=== PATIENT | female | born 1945 | race Caucasian/White ===

== ENCOUNTER 2023-09-12 07:39 | Inpatient (IN) | payer MEDICARE, OTHER, SELFPAY ==
--- NOTE | 2023-08-30 09:00 | CM ---
Patient is scheduled for an elective L TKR on 09/12/23. Spoke with patient prior to surgery via telephone. Patient had a R TKR at in 2014. Reintroduced role of Orthopedic Navigator. Patient reports that she lives with her sister in a one story
home. There are two or three steps to enter. She currently functions independently. She has a rolling walker and shower seat. She has had VN services through [facility]. PCP is Dr. Rigo Smiley.
Discussed orthopedic program and post surgical plans. Reviewed anticipated length of stay and that goal is for her to return home at discharge. Also reviewed outpatient PT. Patient is in agreement with tentative plan and will go directly to
outpatient PT at [facility]. She will have support from her sister and other family members when she goes home.
Patient will complete online education.
Plan: Orthopedic Navigator will remain available to assist with the care of patient and will reassess discharge needs after surgery.
[2023-08-31 14:13] VITALS: BMI 28.3
[2023-08-31 14:30] LABS: Hemoglobin 15.8 g/dL (12.0-16.0); Mean Corp Hgb Conc. 34.3 g/dL (33.0-37.0); Mean Corpuscular Hgb 31.6 pg (27.0-31.0); Mean Platelet Volume 9.6 fL (7.4-10.4); Platelet Count 245 10^3/uL (130-400); Red Cell Dist. Width 12.7 % (11.5-14.5); White Blood Cell Count 7.3 10^3/uL (4.8-10.8)
[2023-08-31 14:53] VITALS: BMI 28.3
[2023-08-31 15:00] LABS: ALT (SGPT) 25 U/L (0-35); AST (SGOT) 28 U/L (14-36); Albumin 4.6 g/dl (3.5-5.0); Alkaline Phosphatase 92 U/L (38-126); Blood Urea Nitrogen 21 mg/dl (7-17); Calcium 9.9 mg/dl (8.4-10.2); Carbon Dioxide 30 mmol/L (22-30); Chloride 102 mmol/L (98-107); Estimated Creatinine Clearance 48 ml/min; Glucose 129 mg/dl (70-99); Potassium 4.6 mmol/L (3.5-5.1); Sodium 139 mmol/L (135-145); Total Bilirubin 0.5 mg/dl (0.2-1.3); Total Protein 7.5 g/dl (6.3-8.2); eGFR > 60.00
[2023-09-01 09:34] LABS: Glycohemoglobin (HgbA1c) 5.5 % (4.0-5.6)
[2023-09-12] VITALS (20 sets, daily range): BP systolic 119–184; BP diastolic 59–99; PULSE 81–84; O2SAT 96–98; BMI 28.3
[2023-09-12] MEDS: CELEBREX 200 MG PO (08:18)
[2023-09-12] MEDS: NORMOSOL-R 1000 IV ×2 (08:19→14:01)
[2023-09-12] MEDS: BACTROBAN NASAL 1 GRAM NASAL (08:19)
[2023-09-12] MEDS: TYLENOL 650 MG PO ×4 (08:19→21:02)
[2023-09-12] MEDS: ASPIRIN 325 MG PO (13:39)
[2023-09-12] MEDS: ARICEPT 10 MG PO (13:39)
[2023-09-12] MEDS: PROZAC 10 MG PO (13:40)
[2023-09-12] MEDS: LIPITOR 10 MG PO (13:40)
[2023-09-12] MEDS: VISBIOME 1 CAP PO (13:45)
[2023-09-12] MEDS: ANCEF 5 IV (18:34)
--- NOTE | 2023-09-12 20:00 | PTCARENOTE ---
pt arrived from [facility]. no c/o pain. Inge w/ scant jannet. wk pp. pt oriented to room w/ call gardner in reach.
reviewed post op wound care, ambulation, and precautions. pt walked 75 feet in hallways w/ RW.
[2023-09-12] MEDS: BACTROBAN 2% OINTMENT 1 APPLIC NASAL (21:00)
[2023-09-12] MEDS: TORADOL 15 MG IV (21:04)
[2023-09-12] MEDS: SENOKOT 17.1999999999999993 MG PO (21:05)
[2023-09-12] MEDS: COLACE 100 MG PO (21:05)
[2023-09-12] MEDS: DECADRON 4 MG PO (21:05)
[2023-09-12] MEDS: PEPCID 20 MG PO (21:05)
[2023-09-12] MEDS: NEURONTIN 300 MG PO (21:06)
[2023-09-12] MEDS: TYLENOL PO (23:59)
[2023-09-12] MEDS: MELATONIN 3 MG PO (23:59)
[2023-09-13] MEDS: TYLENOL PO ×2 (00:05→05:21)
[2023-09-13] MEDS: ANCEF 5 IV (02:09)
[2023-09-13 03:12] VITALS: BP 140/80
[2023-09-13 07:50] VITALS: BP 151/87
[2023-09-13 09:09] VITALS: BP 142/85; PULSE 87; O2SAT 92
[2023-09-13] MEDS: SENOKOT 17.1999999999999993 MG PO (09:21)
[2023-09-13] MEDS: TYLENOL 650 MG PO (09:21)
[2023-09-13] MEDS: CELEBREX 200 MG PO (09:21)
[2023-09-13] MEDS: PROZAC 10 MG PO (09:21)
[2023-09-13] MEDS: ASPIRIN 325 MG PO (09:22)
[2023-09-13] MEDS: DECADRON 4 MG PO (09:22)
[2023-09-13] MEDS: ARICEPT 10 MG PO (09:22)
[2023-09-13] MEDS: VISBIOME 1 CAP PO (09:22)
[2023-09-13] MEDS: LIPITOR 10 MG PO (09:23)
[2023-09-13] MEDS: COLACE 100 MG PO (09:23)
[2023-09-13] MEDS: BACTROBAN 2% OINTMENT 1 APPLIC NASAL (09:23)
[2023-09-13] MEDS: TORADOL 15 MG IV (09:24)
--- NOTE | 2023-09-13 09:34 | CM ---
Reviewed chart and held rounds with PT, OT and nursing. Patient admitted as planned for elective L TKR. Met with patient at bedside. Confirmed information previously obtained for assessment. Also discussed discharge plans. The plan is for patient to
return home at discharge. She will have support from her sister when she goes home. Patient will go directly to outpatient PT and will go to [facility]. She has an appointment scheduled for 09/14/23. Reviewed need to schedule appointment with
HORACIO at Dr. Colindres office in two weeks for removal of yennifer.
Patient has a rolling walker, and shower seat.
She will use [facility] for discharge prescriptions.
--- NOTE | 2023-09-13 09:37 | W.PN.ORTHO ---
Today's Communication / Plan
-
d/c
Assessment
.
Distal Motor Intact: Yes
Dressing:
Clean, dry and intact.
Assessment:
Cognitive deficits-minimize opioids
Plan
.
Surgery / Date: L TKA 09/12/23 CBB
DVT Prophylaxis: Aspirin (+ SCD device)
Activity:
Out of bed.
PT/OT
Discharge Plan: Home w/ Outpatient PT
Subjective
.
.:
Patient resting comfortably.
Vital Signs and Labs
.
Vital Signs and Labs:
Lab Results
08/31/23 14:05
08/31/23 14:05
Temp Pulse Resp BP Pulse Ox
98.6 F 98 18 151/87 96
09/13/23 07:50 09/13/23 07:50 09/13/23 07:50 09/13/23 07:50 09/13/23 07:50
Non-invasive Hgb result: 13.1
Physical Exam
-
HEENT: No pallor, cyanosis, or jaundice. Throat clear.
NECK: Supple. No JVD.
RESPIRATORY: Lungs clear to auscultation.
CVS: S1, S2 normal. RRR.� No murmur, rub or gallop.
ABDOMEN: Soft, non-tender. No distension. BS+/normal.
EXTREMITIES: strength equal, no calf pain with palpation
TIP PRINTER: AOx3. No focal deficits. transformer mechanic grossly intact
--- NOTE | 2023-09-13 09:46 | W.DS.TRANS ---
DC Summary - Electronic Drafter
-
Discharge Instructions:
Sleep Apnea Risk Low
Discharge Diagnosis/Procedures L TKA 09/12/23 CBB
Diet As tolerated
Activity With Walker
Additional Activity venous compression device/plasma flow when
sitting or sleeping--frequent ambulation
Driving Restrictions No driving
Bathing Restrictions OK to Shower
Other Services PT
Instructions:
Stand-Alone Forms: Total Hip/Knee Replacement D/C
Changes to Home Medications: Yes
Discharge Medications:
DC Medications w/original date entered in [employer]
Probiotic 1 cap PO DAILY 08/30/23
atomoxetine 25 mg capsule 50 mg PO DAILY 08/30/23
atorvastatin 10 mg tablet 10 mg PO DAILY 08/30/23
biotin 10,000 mcg capsule 10,000 mcg PO DAILY 08/30/23
donepezil 10 mg tablet 10 mg PO DAILY 08/30/23
fluoxetine 10 mg tablet 10 mg PO DAILY 08/30/23
ibuprofen 200 mg tablet 400 mg PO Q6H PRN pain 08/30/23
psyllium husk 0.4 gram capsule (Fiber (psyllium husk)) 0.4 g PO DAILY 08/30/23
mupirocin 2 % topical ointment 1 applic topical BID infection prevention #1 tube 08/31/23
Vitamin C 1 gummy PO DAILY 09/12/23
loratadine 10 mg tablet (Claritin) 10 mg PO PRN PRN allergies 09/12/23
acetaminophen 500 mg tablet 1,000 mg (2 x 500 mg) PO QID #0 tabs 09/13/23
aspirin 325 mg tablet 325 mg PO DAILY blood clot prevention #1 tab 09/13/23
celecoxib 200 mg capsule 200 mg PO DAILY anti-inflammatory #14 caps 09/13/23
dexamethasone 4 mg tablet 4 mg PO BID inflammation #6 tabs 09/13/23
docusate sodium 100 mg capsule (Colace) 100 mg PO BID stool softner #1 cap 09/13/23
famotidine 20 mg tablet 20 mg PO HS GI prophylaxis #30 tabs 09/13/23
gabapentin 300 mg capsule 300 mg PO HS sleep/pain #10 caps 09/13/23
magnesium hydroxide 400 mg/5 mL oral suspension (Milk of Magnesia) 30 ml PO HS PRN Constipation #1 mL 09/13/23
oxycodone 5 mg tablet 5 mg PO Q4HPRN PRN moderate-severe pain #20 tabs 09/13/23
sennosides 8.6 mg tablet (Senokot) 17.2 mg (2 x 8.6 mg) PO BID laxative #2 tabs 09/13/23
Home Medication Changes
celecoxib 200 mg capsule 200 mg PO DAILY anti-inflammatory #14 caps 09/13/23�
dexamethasone 4 mg tablet 4 mg PO BID inflammation #6 tabs 09/13/23�
famotidine 20 mg tablet 20 mg PO HS GI prophylaxis #30 tabs 09/13/23�
gabapentin 300 mg capsule 300 mg PO HS sleep/pain #10 caps 09/13/23�
oxycodone 5 mg tablet 5 mg PO Q4HPRN PRN moderate-severe pain #20 tabs 09/13/23�
Pending Results: No
[2023-09-13 09:59] VITALS: BP 165/88; PULSE 98; O2SAT 91
== END 2023-09-13 11:36 | disposition home or self-care (01) | DRG 470 ==
LOC: 2 SOUTH 07:39
PROVIDERS: ADMITTING PHYSICIAN Specialist; FAMILY PHYSICIAN Family Medicine; OTHER PHYSICIAN Physician Assistant Medical
PROC: 0SRD0J9 Replacement of Left Knee Joint with Synthetic Substitute, Cemented, Open Approach (ICD-10-PCS; 2023-09-12)
DX: M17.12 Unilateral primary osteoarthritis, left knee (principal); K76.0 Fatty (change of) liver, not elsewhere classified; I10 Essential (primary) hypertension; F32.A Depression, unspecified; E78.5 Hyperlipidemia, unspecified; M76.892 Other specified enthesopathies of left lower limb, excluding foot; F41.9 Anxiety disorder, unspecified; R41.89 Other symptoms and signs involving cognitive functions and awareness; Z79.899 Other long term (current) drug therapy; Z86.711 Personal history of pulmonary embolism; Z87.891 Personal history of nicotine dependence; Z96.651 Presence of right artificial knee joint
CPT/HCPCS: 36415; 73560; 80053; 83036; 85027; 87070; 93005; 97116; 97162; 97166; 97530; 97535; C1713; C1776

== ENCOUNTER 2023-10-11 16:04 | Emergency (ER) | payer MEDICARE, OTHER, SELFPAY ==
[2023-10-11 16:11] VITALS: BP 177/89
[2023-10-11 17:39] VITALS: BP 153/72
[2023-10-11 18:00] VITALS: BP 158/67
[2023-10-11 18:13] LABS: % Basophils 0.3 % (0-2); % Eosinophils 3.3 % (0-6); % Immature Granulocytes 0.4 % (0-0.5); % Lymphocytes 9.3 % (20.5-51.1); % Monocytes 7.9 % (1.7-9.3); % Neutrophils 78.8 % (42.2-75.2); Absolute Eosinophils 0.2 10^3/uL (0-0.7); Absolute Lymphocytes 0.7 10^3/uL (1.2-3.4); Absolute Monocytes 0.6 10^3/uL (0.1-0.6); Absolute Neutrophils 5.5 10^3/uL (1.4-6.5); Hematocrit 38.7 % (37.0-47.0); Hemoglobin 12.5 g/dL (12.0-16.0); Mean Corp Hgb Conc. 32.3 g/dL (33.0-37.0); Mean Corpuscular Hgb 31.4 pg (27.0-31.0); Mean Corpuscular Volume 97.2 fL (81.0-99.0); Mean Platelet Volume 9.4 fL (7.4-10.4); Nucleated Red Blood Cells % 0 %; Platelet Count 267 10^3/uL (130-400); Red Blood Cell Count 3.98 10^6/uL (4.20-5.40); Red Cell Dist. Width 13.6 % (11.5-14.5)
[2023-10-11 18:25] LABS: ALT (SGPT) 16 U/L (0-35); AST (SGOT) 24 U/L (14-36); Albumin 3.9 g/dl (3.5-5.0); Alkaline Phosphatase 96 U/L (38-126); Blood Urea Nitrogen 24 mg/dl (7-17); Calcium 9.6 mg/dl (8.4-10.2); Carbon Dioxide 26 mmol/L (22-30); Chloride 107 mmol/L (98-107); Glucose 98 mg/dl (70-99); Magnesium 2.3 mg/dl (1.6-2.3); Sodium 138 mmol/L (135-145); Total Bilirubin 0.6 mg/dl (0.2-1.3); Total Protein 6.6 g/dl (6.3-8.2); eGFR > 60.00
[2023-10-11 18:36] LABS: Troponin I < 0.012 ng/ml
[2023-10-11 18:56] LABS: TSH 1.38 uIU/ml (0.47-4.68)
[2023-10-11 20:15] VITALS: BP 150/80
--- NOTE | 2023-10-11 21:00 | ED.GENMED ---
History of Present Illness
General
Chief Complaint: Blood Pressure Problem
Source: patient
Exam Limitations: none
Time Seen by Provider: 10/11/23 17:24
Nursing documentation reviewed up to this point in time: agreed with
History of Present Illness
History of Present Illness:
77-year-old female with medical history of previous clot not currently anticoagulated recent left knee replacement 2 months ago presenting to the emergency department today with concerns of elevated blood pressures and some intermittent
lightheadedness but no full loss of consciousness no chest pain shortness of breath nausea vomiting numbness or weakness.
Past History
Past History
ED Past Medical History: Other (Pulmonary embolism); Negative IDDM
ED Past Surgical History: Orthopedic and Tonsilectomy; Negative Appendectomy
Social History
Tobacco: Non-smoker
Alcohol: None
Drug: None
Personal: Single
Living: with family
Employment: Not employed
Family History
Family History: Other
Review of Systems
Review of Systems
Allergies reviewed?: Yes
All Other Systems: ROS reviewed and negative except as documented in HPI and ROS
Phy Exam
Physical Exam
Physical Exam:
GENERAL: Alert , in no apparent distress
EYE: pupils equal and reactive
NECK: Supple, no significant adenopathy.
ENT: o/p clr, mmm.
CARDIAC: Regular rate and rhythm .
LUNGS: Clear breath sounds bilaterally, no acute respiratory distress, no wheezes/rales/rhonchi
ABDOMEN: Soft, without focal tenderness, no r/g, no cvat
NEUROLOGICAL: Alert and oriented, no focal neuro deficits
SKIN: Warm and dry, skin intact.
MUSCULOSKELETAL: Mild swelling to the left leg no overlying redness or warmth no tenderness to palpation, well perfused.
PSYCH: Normal and appropriate interaction.
Course
Orders/Labs/Results
Orders:
Orders
10/11/23 17:54
Venous Doppler Lwr Ext Left [US Periph Venous LOWER Ext LT] Urgent
Comment:
Reason For Exam: left leg swelling knee usrtgery
10/11/23 17:55
Electrocardiogram (*1) Stat
Reason for Study: Other
Other Reason for Exam: chest pain
EKG- Treatment ONCE
10/11/23 17:59
Complete Blood Count/With Diff Urgent
Comprehensive Metabolic Panel Urgent
Magnesium Urgent
TSH Urgent
Troponin I Urgent
Abnormal Lab Results
10/11/23
17:59
RBC 3.98 L 10^6/uL
(4.20-5.40)
MCH 31.4 H pg
(27.0-31.0)
MCHC 32.3 L g/dL
(33.0-37.0)
Absolute Lymphs (auto) 0.7 L 10^3/uL
(1.2-3.4)
Neutrophils % 78.8 H %
(42.2-75.2)
Lymphocytes % 9.3 L %
(20.5-51.1)
BUN 24 H mg/dl
(7-17)
10/11/23 17:59
10/11/23 17:59
Vital Signs
Initial and Last Documented VS:
Initial Vital Signs
Temp Pulse Resp BP Pulse Ox
97.9 F 90 15 177/89 96
10/11/23 16:11 10/11/23 16:11 10/11/23 16:11 10/11/23 16:11 10/11/23 16:11
Last Documented Vital Signs
Temp Pulse Resp BP Pulse Ox
98.2 F 69 20 150/80 97
10/11/23 20:15 10/11/23 20:15 10/11/23 20:15 10/11/23 20:15 10/11/23 20:15
MDM/Problems Addressed
MDM/Problems Addressed:
77-year-old female presenting to the emergency department today with concerns of elevated blood pressure at home in the 190s over low 100s upon arrival here blood pressures in the 170s over 80s but improving to 150s over 80s without specific
treatment. Labs were obtained and unremarkable other than a slightly elevated BUN to creatinine ratio but was able to tolerate fluids here. Troponin negative EKG normal ultrasound of the left leg without signs of blood clot. Patient was started
on blood pressure medication considering she claims that she has been taking her blood pressure at home and has had elevated numbers over the past month. Advised for close outpatient follow-up. Return precautions given.
*Critical Care Note
Total Time (30-74mins, 75-104mins- exclusive of procedures): Not Applicable
ED Attending Note
-
Portions of this chart may have been created with voice recognition software.� Occasional wrong word or��sound alike� substitutions may have occurred due to the inherent limitations of voice recognition software.
Discharge Plan
Departure
Patient Disposition: Home (Routine Discharge)
Date of Disposition: 10/11/23
Time of Disposition: 21:03
Patient with high blood pressure during this ER visit?: Yes
Condition: Good
Covid-19: Not Applicable
Discharge Problem:
BP (high blood pressure)
Instructions: High Blood Pressure (DC)
Prescriptions:
New
lisinopril 5 mg tablet
5 mg PO DAILY 14 Days Qty: 14 0RF
No Action
atorvastatin 10 mg Tablet
10 mg PO DAILY
donepezil 10 mg Tablet
10 mg PO DAILY
fluoxetine 10 mg Tablet
10 mg PO DAILY
biotin 10,000 mcg Capsule
10,000 mcg PO DAILY
atomoxetine 25 mg Capsule
50 mg PO DAILY
psyllium husk [Fiber (psyllium husk)] 0.4 gram Capsule
0.4 g PO DAILY
Probiotic
1 cap PO DAILY
ibuprofen 200 mg Tablet
400 mg PO Q6H PRN (Reason: pain)
Hold Instructions: Resume on 09/29/23.
loratadine [Claritin] 10 mg Tablet
10 mg PO PRN PRN (Reason: allergies)
Vitamin C
1 gummy PO DAILY
aspirin 325 mg tablet
325 mg PO DAILY Qty: 1 0RF
Rx Instructions:
Take with food
gabapentin 300 mg capsule
300 mg PO HS Qty: 10 0RF
sennosides [Senokot] 8.6 mg tablet
17.2 mg PO BID Qty: 2 0RF
famotidine 20 mg tablet
20 mg PO HS Qty: 30 0RF
Rx Instructions:
post-op
acetaminophen 500 mg Tablet
1,000 mg PO QID Qty: 0 0RF
Referrals:
Rigo Smiley, [Family Provider] -
Activity Restrictions/Additional Instructions:
You came to the emergency department today with concerns of elevated blood pressure. Your blood pressure was elevated in the 150s over 80s here please take the prescribed lisinopril once daily and follow-up closely with your primary care doctor for
reassessment. Return to the emergency department for any worsening, new or concerning symptoms.
Interventions
Interventions:
*Risk Screen - Suicide Last Done: 10/11/23 16:11
*General Assessment Last Done: 10/11/23 16:11
*Neglect/Abuse Screening Last Done: 10/11/23 16:11
ED- Fall Risk Assessment Last Done: 10/11/23 17:57
*ED COVID-19 Vaccine History Last Done: 10/11/23 17:25
ED- Cardiac Assessment Last Done: 10/11/23 20:15
ED- Neurological Assessment Last Done: 10/11/23 20:15
ED- Pulmonary Assessment Last Done: 10/11/23 20:15
Discharge Date and Time
Print Language: UKRAINIAN
[2023-10-11 21:25] VITALS: BP 138/80
[2023-10-11] MEDS: ZESTRIL 5 MG PO (21:31)
== END 2023-10-11 21:55 | disposition home or self-care (01) ==
LOC: EMR 16:04
PROVIDERS: Physician Assistant; EMERGENCY PHYSICIAN Emergency Medicine; FAMILY PHYSICIAN Family Medicine
DX: R03.0 Elevated blood-pressure reading, without diagnosis of hypertension (principal); R60.0 Localized edema; Z86.711 Personal history of pulmonary embolism; Z90.49 Acquired absence of other specified parts of digestive tract
CPT/HCPCS: 99284; 80053; 83735; 84443; 84484; 85025; 93005; 93971

== ENCOUNTER 2023-10-15 16:49 | Observation (INO) | payer MEDICARE, OTHER, SELFPAY ==
[2023-10-15] VITALS (18 sets, daily range): BP systolic 143–199; BP diastolic 64–96; PULSE 72–87; BMI 30.8
--- NOTE | 2023-10-15 10:32 | ED.GENMED ---
History of Present Illness
General
Chief Complaint: Dizziness
Source: patient and other (Granddaughter)
Exam Limitations: none
Time Seen by Provider: 10/15/23 09:52
History of Present Illness
History of Present Illness:
Patient presents with 2 complaints. Complaint #1 is a note recurrent episode of dizziness this morning lasted 10 to 15 minutes then self resolved. No headache no other focal neurologic symptoms. Patient currently on blood pressure management
after a similar episode last week
Past History
Past History
ED Past Medical History: Other (Pulmonary embolism); Negative IDDM
ED Past Surgical History: Orthopedic and Tonsilectomy; Negative Appendectomy
Social History
Tobacco: Non-smoker
Alcohol: None
Drug: None
Personal: Single
Living: with family
Employment: Not employed
Family History
Family History: Other
Review of Systems
Review of Systems
All Other Systems: Not applicable
Constitutional: Denies fever or chills
Respiratory: Reports no symptoms
Cardiac: Reports no symptoms; Denies chest pain or syncope
Phy Exam
Physical Exam
Physical Exam:
GENERAL: Alert and oriented in no apparent distress
EYE: Orbits normal.
NECK: Supple, no significant adenopathy.
ENT: Pharynx without erythema
CARDIAC: Regular rate and rhythm without any obvious murmurs.
LUNGS: There are a few dry crackles in the base of her lungs however no respiratory distress no wheezing rhonchi.
ABDOMEN: Soft, without focal tenderness or distention
NEUROLOGICAL: Alert and oriented , grossly non-focal
SKIN: Warm and dry, mild erythematous hue to the left lower leg. However no warmth or erythema. Well-healing postoperative incision. No drainage.
MUSCULOSKELETAL: Mild nonpitting edema to the left lower extremity. This is from knee down. No cord.
PSYCH: Normal and appropriate interaction.
Course
Orders/Labs/Results
Orders:
Orders
10/15/23 10:07
Electrocardiogram (*1) Stat
Reason for Study: Other
Other Reason for Exam: neuro symptoms
Cardiac Monitoring- Treatment ONCE
EKG- Treatment ONCE
IV Insert/Care/Rem.- Treatment PRN
Knee, Left 4 or More Views [CR Knee - Left 4 Or More View*] Urgent
Comment:
Reason For Exam: Post knee replacement, swelling
US Periph Venous LOWER Ext LT Urgent
Comment:
Reason For Exam: Persistent swelling
10/15/23 10:16
Basic Metabolic Panel Urgent
Complete Blood Count/With Diff Urgent
10/15/23 10:25
CT Head W/o Iv Contrast Urgent
Comment:
Reason For Exam: Dizziness
10/15/23 16:20
Admit/Transfer Patient As Directed
Co-Sign Provider:
Level of Care: Observation services
Assign to:: Telemetry
Physician / Group: yehuda vega
Diagnosis: vertigo
Reason for Telemetry: Other
Other Reason for Telemetry: dizziness, assess for arrhythmia
Date to Stop Telemetry: 10/17/23
Time to Stop Telemetry: 11:00
10/15/23 16:24
Code Status As Directed
Resuscitation Status: Full Code
10/15/23 16:48
CT Head & Neck Angio W/wo IV Routine
Comment:
Reason For Exam: r/o vertobasilar stenosis
10/15/23 18:22
Bisacodyl [Dulcolax] 10 mg RECTAL [id number] PRN
Docusate W/Senna [Senokot-S] 1 tablet PO BIDPRN PRN
Enoxaparin Sodium [Lovenox] 40 mg SC QPM
Polyethylene Glycol Powder [Miralax] 17 grams PO DAILYPRN PRN
10/15/23 18:22
Activity As Directed
Activity Level: Out of Bed-Early Mobility
Vital Signs As Directed
Frequency: Per unit guidelines
Pulse Ox/spot Check [RESP] Routine
Quantity: 1
DX Deep Vein Thrombosis Video Routine
10/15/23 22:00
Famotidine [Pepcid] 20 mg PO HS
Lisinopril [Zestril] 5 mg PO HS
10/16/23 Breakfast
Regular
At Your Request: Full Participation
Does patient need a safe tray?: No
10/16/23 08:00
Ascorbic Acid [Vitamin C] 500 mg PO DAILY
Fluoxetine HCl [Prozac] 10 mg PO DAILY
biotin 10,000 mcg PO DAILY
10/17/23 11:00
DC Protocol for Telemetry ONCE
Abnormal Lab Results
10/15/23
10:16
RBC 4.07 L 10^6/uL
(4.20-5.40)
MCH 31.4 H pg
(27.0-31.0)
Absolute Lymphs (auto) 0.7 L 10^3/uL
(1.2-3.4)
Neutrophils % 76.1 H %
(42.2-75.2)
Lymphocytes % 11.7 L %
(20.5-51.1)
Chloride 108 H mmol/L
(98-107)
BUN 21 H mg/dl
(7-17)
Glucose 108 H mg/dl
(70-99)
10/15/23 10:16
10/15/23 10:16
Vital Signs
Initial and Last Documented VS:
Initial Vital Signs
Temp Pulse Resp BP Pulse Ox
98.1 F 71 16 155/80 98
10/15/23 09:36 10/15/23 09:36 10/15/23 09:36 10/15/23 09:36 10/15/23 09:36
Last Documented Vital Signs
Temp Pulse Resp BP Pulse Ox
98.8 F 81 20 170/86 93
10/16/23 07:30 10/16/23 07:30 10/16/23 07:30 10/16/23 07:30 10/16/23 07:30
MDM/Problems Addressed
Differential Diagnosis Includes:
Patient with 2 seemingly independent complaints. Ongoing swelling and concerns with her left knee which initially was not swollen but has been like this for the last 2 to 3 weeks. There is no acute new symptoms. She has no significant pain just
feels mildly tight. She is no fever or chills. No systemic infectious symptoms. Secondly she had a brief episode of disequilibrium that lasted 10 to 15 minutes. Her blood pressure has been under better control. She denies headache or neurologic
symptoms. Her neurologic exam is benign. She has slightly wide-based gait but this apparently has been ongoing.
*Radiology
Radiology exam reviewed: radiology read reviewed (Negative knee x-ray. Negative leg ultrasound. Negative head CT.)
*Pulse Oximetry
Patient hypoxic: no
*EKG
Interpreted by ED Provider?: Yes
Interpretation: normal
Rate: normal
Rhythm: sinus
Gilchrist: normal axis
Interval: normal interval
QRS Pattern: normal QRS
Ischemia: no ischemia
*Critical Care Note
Total Time (30-74mins, 75-104mins- exclusive of procedures): Not Applicable
Data Reviewed
Review of Other/Old Records Reveals: Labs, Records and Testing
Update Note
Update Note:
Patient has remained medically stable and asymptomatic. Again I feel she has 2 unrelated issues. The leg has been ongoing with swelling upwards of a month per the daughter. There is no DVT. Clinically highly doubt an acute infectious issue.
There is no significant erythema warmth no drainage. Incision appears well. No indication for admission for this issue. As for her disequilibrium she had a brief episode this morning that lasted 10 to 15 minutes. She is currently asymptomatic.
Her neurologic exam is normal. She has started blood pressure management. She stopped aspirin a week or so ago. She did take 1 today at home. I had a lengthy discussion with the patient daughter and granddaughter. Daughter was over the phone.
I offered admission however admission would likely result in a prolonged stay awaiting a nonemergent MRI and likely would end up resulting in restarting aspirin. Even if this was a central issue. Clinically and medically I feel reasonable to have
her restart her aspirin and follow-up as an outpatient with her primary physician. Risk-benefit of staying versus discharge was explained to the patient daughter and granddaughter. And again admission was offered for observation and workup in the
hospital. They are comfortable with outpatient management. She will stay with family over the weekend.
ED Attending Note
-
Portions of this chart may have been created with voice recognition software.� Occasional wrong word or��sound alike� substitutions may have occurred due to the inherent limitations of voice recognition software.
Discharge Plan
Departure
Patient Disposition: Admit
Date of Disposition: 10/15/23
Time of Disposition: 14:40
Presentation/result/management discussed w/ accepting MD/DO: Hospitalist
Patient with high blood pressure during this ER visit?: Yes
Discharge Problem:
Episodic disequilibrium, Elevated blood pressure reading, Ongoing left leg swelling, Status post left knee replacement
Interventions
Interventions:
*Risk Screen - Suicide Last Done: 10/15/23 20:47
*General Assessment Last Done: 10/15/23 09:36
*Neglect/Abuse Screening Last Done: 10/15/23 09:36
ED- Fall Risk Assessment Last Done: 10/15/23 10:30
*ED COVID-19 Vaccine History Last Done: 10/15/23 10:30
*Nursing Disposition Last Done: 10/15/23 18:32
ED- Neurological Assessment Last Done: 10/15/23 10:30
ED- Cardiac Assessment Last Done: 10/15/23 10:30
ED Swallowing Screen Last Done: 10/15/23 10:30
Discharge Date and Time
Discharge Date/Time: 10/15/23 18:33
[2023-10-15 10:35] LABS: % Basophils 0.5 % (0-2); % Eosinophils 3.6 % (0-6); % Immature Granulocytes 0.5 % (0-0.5); % Lymphocytes 11.7 % (20.5-51.1); % Monocytes 7.6 % (1.7-9.3); % Neutrophils 76.1 % (42.2-75.2); Absolute Eosinophils 0.2 10^3/uL (0-0.7); Absolute Lymphocytes 0.7 10^3/uL (1.2-3.4); Absolute Monocytes 0.4 10^3/uL (0.1-0.6); Absolute Neutrophils 4.3 10^3/uL (1.4-6.5); Hematocrit 38.8 % (37.0-47.0); Hemoglobin 12.8 g/dL (12.0-16.0); Mean Corpuscular Hgb 31.4 pg (27.0-31.0); Mean Corpuscular Volume 95.3 fL (81.0-99.0); Mean Platelet Volume 9.4 fL (7.4-10.4); Nucleated Red Blood Cells % 0 %; Platelet Count 226 10^3/uL (130-400); Red Blood Cell Count 4.07 10^6/uL (4.20-5.40); Red Cell Dist. Width 13.4 % (11.5-14.5); White Blood Cell Count 5.6 10^3/uL (4.8-10.8)
[2023-10-15 10:55] LABS: Blood Urea Nitrogen 21 mg/dl (7-17); Calcium 9.4 mg/dl (8.4-10.2); Carbon Dioxide 25 mmol/L (22-30); Chloride 108 mmol/L (98-107); Estimated Creatinine Clearance 62 ml/min; Glucose 108 mg/dl (70-99); Potassium 3.8 mmol/L (3.5-5.1); Sodium 140 mmol/L (135-145); eGFR > 60.00
--- NOTE | 2023-10-15 12:28 | EDRN ---
Dr. Irving in room w/ pt at this time.
--- NOTE | 2023-10-15 12:43 | EDRN ---
Patient and family voicing concern for pt. Dr. Irving informed and returned to alleve their concerns.
--- NOTE | 2023-10-15 13:20 | EDRN ---
This RN checked w/ pt on her decision of discharge vs admission after speaking w/ Dr. Irving. Pt stated that she has decided to go home and follow up as an outpatient. Dr. Irving informed.
--- NOTE | 2023-10-15 14:52 | EDRN ---
Pt is concerned about her BP again when this RN went in to discharge patient and SBP increased from 170 and now 183. Ruthy GRAMAJO is checking on pt and will speak w/ Dr. Irving.
--- NOTE | 2023-10-15 16:51 | HPS.HSE ---
Family Physician
-
Family Physician: Rigo Smiley
Chief Complaint
-
dizziness
History of Present Illness
77F with medical history htn and hld presents with acute onset of dizziness after waking up this morning. Debilitating and was unable to ambulate. Needed to lay back down with improvement in symptoms after 25m-30m. Associated nausea. Admits to
hearing waves like crashing sounds in her ears. She took her BP was high in the 190's and then took her lisinopril and aspirin. No vomiting. No bruning with urination. No CP, SOB, palpitations. No numbness, tingling nor loss of sensations. States
she has been properly hydrated and slept in a cool room with the AC on.
In the ED: Hypertensives with HR ranging between 65-75. Labs unremarkable. CT brain w/o acute findings. DVT study negative. Knee xray with slight effusion but consistent with post op changes. EKG NSR.
Medical History
Past Medical History
Past Medical History: Reports HTN and Hypercholesterolemia
Past Surgical History: Reports Orthopedic and Tonsilectomy
Social History
Tobacco: Former Smoker
Alcohol: None
Drug: None
Living: With Family
Family History
Family History: Other
Allergies / Home Medications
Allergies reflects when Allergies were last updated in [employer]
Home Medications with original date entered in [employer]
Lipitor 10mg HS
Lisinopril 5mg daily
Allergy/Medication List:
NKDA
Review of Systems
-
History Source: Patient
A 12 point ROS was completed and negative except as noted: Yes
Physical Exam
Vital Signs
Vital Signs
Temp Pulse Resp BP Pulse Ox
98.1 F 72 23 178/78 96
10/15/23 09:36 10/15/23 14:45 10/15/23 14:45 10/15/23 14:30 10/15/23 14:00
NAD, Comfortable
No nystagmus illicited, scleral anicteric, MMM
No jvd
CTABL
RRR, s1/s2, no murmur
Soft nt nd bs+
Moves all 4 extremities sponteous. Left leg more swollen then the right, noted some warmth, suture line intake without drainage from recent knee surgery 09/11.
Physical Exam
General: Well Developed
Laboratory Results
-
10/15/23 10:16
10/15/23 10:16
Impression/Plan
-
Veritgo
ddx vertobasilar cva/tia, bppv, vestibular nuritis, unlikely cardiac in nature.
-ENT surgery as she is having auditory changes with having wave crashing sensation
-MRI Brain w/o con
-CTAngio Head/neck
-Tele monitor
-Orthostatics
-PT/OT
HTN uncontrolled, started on lisinopril on 10/11/2023
-We have room to go up on the lisinopril
-Would like to check orthostatics prior to increasing
Left knee swelling s/p left knee replacement on 09/12/23
-Have ortho eval
HLD
-Continue statin
DVT ppx
-LMWH
[2023-10-15] MEDS: LOVENOX 40 MG SC (18:38)
[2023-10-15] MEDS: LIPITOR 10 MG PO (18:39)
--- NOTE | 2023-10-15 18:54 | CON.MD ---
Consultation - Medical
-
dictated.
3 episodes of dizziness lasting 15' over the past 1.5 months.
Exam unremarkable.
Possibly TIAs, or from uncontrolled HTN?
Also bilateral pulsatile tinnitus for 1.5 months.
Differential includes HTN, venous hum, carotid stenosis, hyperthyroidism
Rec:
await CTA, MRI
check TFTs
PT eval
HTN being managed
[2023-10-15] MEDS: PEPCID 20 MG PO (21:06)
[2023-10-16 03:00] VITALS: BP 154/81
[2023-10-16 07:30] VITALS: BP 156/95; BP 157/91; BP 170/86; PULSE 81; PULSE 89; PULSE 97
[2023-10-16] MEDS: VITAMIN C 500 MG PO (08:36)
[2023-10-16] MEDS: PROZAC 10 MG PO (08:36)
[2023-10-16] MEDS: ZESTRIL 10 MG PO (08:36)
--- NOTE | 2023-10-16 08:48 | W.PN.UPDATE ---
Update Note
Progress Note Update
77-year-old female who is status post left total knee arthroplasty 12 September 2023 admitted overnight stay at [facility] with Dr. Colindres. She reports that she had some early wound dehiscence at the proximal aspect and was seen early in the
office. She reports since then she has recovered relatively well with most recent outpatient visit 27 September 2023 with range of motion recorded 0 to 100 degrees.
She reports that she has had intermittent swelling about the left knee and some medial based pain but overall feels that she is recovering well and was doing well with physical therapy. She is presently admitted for near syncopal episode and
dizziness reports since admission she has more difficulty with knee range of motion. Denies any fevers or chills
Physical examination of the left knee shows expected postoperative soft tissue swelling with no significant effusion appreciated, slight limited by habitus. Range of motion 5 to 80 degrees. Mild tenderness. No significant erythema. Neurovascular
intact L3-S1. Compartments of the lower leg are soft and compressible, minimal edema
Imaging: X-rays taken of the left knee show status post left knee arthroplasty without resurfacing without evidence of any osseous or hardware complication
77-year-old female status post left total knee arthroplasty [address] Colindres with some mildly increased pain and reduced range of motion with admission for other constitutional symptoms.
-Minimal concern on examination for infection. Patient does not remember dehiscence but no significant other risk factors for infection. Recommend baseline inflammatory markers for consideration of trending in the future. Will continue holding on
medication at this time but did recommend close clinical follow-up outpatient setting which was scheduled for the patient later this week to ensure that her range of motion is improving towards goal consideration of repeating inflammatory markers if
indicated.
-While admitted recommend PT for her left knee with primary focus of range of motion, with PT as tolerated with her currently admitted constitutional symptoms
[2023-10-16 10:04] LABS: C-Reactive Protein < 5.00 mg/L (0.0-10.00)
[2023-10-16 10:05] LABS: Erythrocyte Sed Rate 24 mm/hour (0-20)
[2023-10-16 11:24] VITALS: BP 154/82
[2023-10-16 11:55] VITALS: BP 154/82
--- NOTE | 2023-10-16 13:09 | W.PN.HOSP.TC ---
Today's Communication/Plan
-
Physical therapy DC
Discharge home after
Assessment / Plan
Assessment / Plan
Noted dizziness from sitting sensation. CT brain angio MRI brain all without evidence of acute abnormalities. ENT evaluated concern for possible TIA versus related to blood pressure especially as she had pulsatile tinnitus. Will discharge home on
increased BP meds. Aspirin 81 mg daily. Lipitor. Awaiting for PT to evaluate. May benefit from vestibular rehab.
Uncontrolled hypertension increase lisinopril. It slowly titrated to improvement in tolerance. Keep BP log
Family updated at bedside. Will also recommend outpatient cardiology follow-up for stress test as for her age known atherosclerotic disease, previous smoking history and hypertension along with blood pressure all increases her risk for CAD
Anticipated Discharge: Today
Subjective/Interval History
-
Date of Service: October 16, 2023
Seen and examined. No new complaints. No acute overnight events.
No further episodes of dizziness reported.
Objective Data
-
Vital Signs:
Vital Signs
Temp Pulse Resp BP Pulse Ox
98.1 F 73 18 154/82 96
10/16/23 11:24 10/16/23 11:24 10/16/23 11:24 10/16/23 11:24 10/16/23 11:24
I&O
10/15/23 10/16/23 10/17/23
06:59 06:59 06:59
Intake Total 480 / 480
Balance 480 / 480
--- NOTE | 2023-10-16 13:13 | W.DCSUMMARY ---
Discharge Summary
Discharge Data
Date of Admission: 10/15/23
Date of Discharge: 10/16/23
-
Pending Results: No
Hospital Course
77F hx of htn and hld Presented with dizziness after waking up this morning. Was unable to ambulate. Blood pressure was in the 190s and felt nauseous without vomiting. CT brain without any acute findings. CT angio brain without evidence of
high-grade stenosis or occlusion. MRI brain without acute findings. EKG without acute changes. Seen by ENT concerned this event was related to uncontrolled blood pressure vs tia (ministroke). We have increased lisinopril to 10 mg daily. Check
blood pressure twice a day keep log for review with PCP. If greater than 160 would call PCP for further recommendations on additional blood pressure medication. Continue aspirin 81 mg daily. Because of the findings on MRI concerning for white
matter ischemic change which could indicate history of stroke will recommend to continue taking atorvastatin. Additionally, orthostatics were checked this was negative.
Requested to see orthopedics therefore they will consulted. Recommend outpatient follow-up. X-rays of the left knee did not demonstrate abnormalities.
CT Brain
IMPRESSION:
No acute intracranial abnormality noted.
CTA Brain
IMPRESSION:
No CTA evidence for high-grade stenosis or occlusion of the arterial vasculature in the head or neck.
MRI BRain
IMPRESSION:
No acute intracranial abnormality noted. Specifically, no acute infarct. Minor chronic microvascular white matter ischemic change.
Knee Xray
IMPRESSION:
No radiographic evidence for an acute osseous abnormality of the left knee.
DVT Study
IMPRESSION:
No evidence of left lower extremity deep venous thrombosis.
Discharge Plan
-
Patient Disposition: Home with Home Care
Discharge Diagnosis/Procedures: HTN
Condition: Good
Diet: As tolerated and Low Cholesterol
Activity: As tolerated
Driving Restrictions: No driving
Bathing Restrictions: None
Activity Restrictions/Additional Instructions:
Presented with dizziness after waking up this morning. Was unable to ambulate. Blood pressure was in the 190s and felt nauseous without vomiting. CT brain without any acute findings. CT angio brain without evidence of high-grade stenosis or
occlusion. MRI brain without acute findings. EKG without acute changes. Seen by ENT concerned this event was related to uncontrolled blood pressure vs tia (ministroke). We have increased lisinopril to 10 mg daily. Check blood pressure twice a day
keep log for review with PCP. If greater than 160 would call PCP for further recommendations on additional blood pressure medication. Continue aspirin 81 mg daily. Because of the findings on MRI concerning for white matter ischemic change which
could indicate history of stroke will recommend to continue taking atorvastatin. Additionally, orthostatics were checked this was negative.
Requested to see orthopedics therefore they will consulted. Recommend outpatient follow-up. X-rays of the left knee did not demonstrate abnormalities.
CT Brain
IMPRESSION:
No acute intracranial abnormality noted.
CTA Brain
IMPRESSION:
No CTA evidence for high-grade stenosis or occlusion of the arterial vasculature in the head or neck.
MRI BRain
IMPRESSION:
No acute intracranial abnormality noted. Specifically, no acute infarct. Minor chronic microvascular white matter ischemic change.
Knee Xray
IMPRESSION:
No radiographic evidence for an acute osseous abnormality of the left knee.
DVT Study
IMPRESSION:
No evidence of left lower extremity deep venous thrombosis.
Instructions: Vertigo (a type of dizziness), High blood pressure in adults, Controlling your blood pressure through lifestyle, Dizziness, Nonvertigo, (DC)
Referrals:
Nain Rahman MD [Active] - in one to two weeks
Nain Herman PA-C [Specified Professional Personl] - (Currently scheduled for 20 October 2023 with HORACIO Herman at our office and oriented on [address] at 8:45 AM. Please contact our office at this point needs to be changed)
Rigo Smiley, [Family Provider] -
Milan Vaughan MD [Active] - in one to two weeks
Karl Daniels MD [Active] - in two weeks
Prescriptions:
New
atorvastatin 10 mg Tablet
10 mg PO QPM 30 Days Qty: 30 0RF
lisinopril 10 mg Tablet
10 mg PO DAILY 30 Days Qty: 30 0RF
aspirin 81 mg tablet,delayed release (DR/EC)
81 mg PO DAILY Qty: 30 0RF
Continued
fluoxetine 10 mg Tablet
10 mg PO DAILY
biotin 10,000 mcg Capsule
10,000 mcg PO DAILY
Visbiome 112.5 billion cell Capsule
1 cap PO DAILY Qty: 0
ascorbic acid (vitamin C) [Vitamin C] 500 mg Tablet,Chewable
500 mg PO DAILY Qty: 0
famotidine 20 mg tablet
20 mg PO HS Qty: 30 0RF
Discontinued
aspirin 325 mg tablet
325 mg PO DAILY Qty: 1 0RF
Rx Instructions:
Take with food
lisinopril 5 mg tablet
5 mg PO DAILY 14 Days Qty: 14 0RF
Discharge Orders:
Discharge Patient (As Directed); Ordered 10/16/23
Ordered By: Zan Ariza
Discharge Date and Time
Print Language: PRYDEINIG
--- NOTE | 2023-10-16 13:38 | CM ---
senior sourcing manager reviewed patient's chart and met with patient and daughter at bedside, patient lives in a modular home with her sister, with 2-3 steps to enter home, patient is independent with adl's mainly uses a cane with ambulation. Patient has a
walker in home. Patient's physician has cleared patient for discharge today to home with visiting nurses, visiting nurse options reviewed and patient has selected [facility], referral sent to [facility].
Plan; Home with [facility].
[2023-10-16 15:00] VITALS: BP 150/84
== END 2023-10-16 15:15 | disposition home health service (06) ==
LOC: 4 WEST ACU 16:49
PROVIDERS: Physician Assistant Surgical; ADMITTING PHYSICIAN Hospitalist; CONSULT PHYSICIAN Otolaryngology; EMERGENCY PHYSICIAN Emergency Medicine; FAMILY PHYSICIAN Family Medicine
DX: R42 Dizziness and giddiness (principal); R29.818 Other symptoms and signs involving the nervous system; M79.89 Other specified soft tissue disorders; I67.82 Cerebral ischemia; E78.5 Hyperlipidemia, unspecified; E78.00 Pure hypercholesterolemia, unspecified; R11.0 Nausea; H93.A3 Pulsatile tinnitus, bilateral; R26.89 Other abnormalities of gait and mobility; J43.2 Centrilobular emphysema; Z86.711 Personal history of pulmonary embolism; Z96.652 Presence of left artificial knee joint; Z87.891 Personal history of nicotine dependence; Z86.73 Personal history of transient ischemic attack (TIA), and cerebral infarction without residual deficits; I10 Essential (primary) hypertension
CPT/HCPCS: 70450; 70496; 70498; 70551; 73564; 80048; 85025; 85652; 86140; 93005; 93971; 99285; G0378; Q9967

== ENCOUNTER → 2024-11-28 11:20 | Outpatient (REF) | payer MEDICARE, OTHER, SELFPAY | LOC: RAD 11:20 | PROVIDERS: ATTENDING PHYSICIAN Otolaryngology | DX: R05.1 Acute cough (principal) | CPT/HCPCS: 71046 ==